=== PATIENT | male | born 1980 | race Caucasian/White ===

== ENCOUNTER 2018-03-20 12:10 | Emergency (ER) | payer MEDICAID ==
[~2018-03-20] VITALS: Ht 180.3 cm; Wt 86.4 kg
[2018-03-20 12:15] VITALS: Ht 180.3 cm; Wt 86.4 kg
[2018-03-20 13:13] LABS: APPEARANCE CLEAR (CLEAR); BILIRUBIN NEGATIVE (NEGATIVE); GLUCOSE NEGATIVE (NEGATIVE); KETONE NEGATIVE (NEGATIVE); NITRITE NEGATIVE (NEGATIVE); PROTEIN NEGATIVE (NEGATIVE); SPECIFIC GRAVITY 1.025 (1.005-1.020); UROBILINOGEN NORMAL (NORMAL)
[2018-03-20 13:15] LABS: BACTERIA FEW /hpf (NONE SEEN); EPITHELIAL CELLS RARE /hpf (0-5); MUCUS <1+ /lpf (NONE SEEN); RED CELLS - URINE 0-5 /hpf (0-5); WHITE CELLS - URINE RARE /hpf (0-5)
[2018-03-20 13:16] LABS: COLOR YELLOW (YELLOW)
[2018-03-20] MEDS ORDERED: NORCO 10-325 TA1 TAB PO (14:49)
[2018-03-20] MEDS ORDERED: ZOFRAN ODT4 MG/UDTAB PO (14:50)
[2018-03-20] MEDS ORDERED: FLOMAX0.4 MG PO (14:50)
[2018-03-20 16:23] VITALS: BP 135/74
== END 2018-03-20 15:08 | disposition home or self-care (01) ==
LOC: D.ER 12:10
PROVIDERS: Family Medicine
DX: N20.1 Calculus of ureter (principal); N23 Unspecified renal colic; F17.200 Nicotine dependence, unspecified, uncomplicated

== ENCOUNTER 2019-07-21 04:01 | Emergency (ER) | payer MEDICAID ==
[~2019-07-21] VITALS: Ht 180.3 cm; Wt 86.4 kg
[~2019-07-21 04:01] MED LIST: FLOMAX0.4 MG PO; NORCO 10-325 TA1 TAB PO; ZOFRAN ODT4 MG/UDTAB PO
[2019-07-21 04:06] VITALS: Ht 180.3 cm; Wt 86.4 kg
[2019-07-21 05:14] LABS: UDS - AMPHET POSITIVE QUAL (NEGATIVE); UDS - BARB NEGATIVE QUAL (NEGATIVE); UDS - BENZO NEGATIVE QUAL (NEGATIVE); UDS - COCAINE NEGATIVE QUAL (NEGATIVE); UDS - OPIATE NEGATIVE QUAL (NEGATIVE); UDS - PCP NEGATIVE QUAL (NEGATIVE); UDS - THC POSITIVE QUAL (NEGATIVE)
[2019-07-21 05:15] LABS: BILIRUBIN NEGATIVE (NEGATIVE); GLUCOSE 100 mg/dL (NEGATIVE); KETONE NEGATIVE (NEGATIVE); NITRITE NEGATIVE (NEGATIVE); SPECIFIC GRAVITY 1.015 (1.005-1.020); UROBILINOGEN NORMAL (NORMAL)
[2019-07-21 05:17] LABS: AMORPHOUS SEDIMENT <1+ /lpf (NONE SEEN); BACTERIA FEW /hpf (NEGATIVE); EPITHELIAL CELLS 0-5 /hpf (0-5); RED CELLS - URINE 0-5 /hpf (0-5); WHITE CELLS - URINE 0-5 /hpf (NEGATIVE)
[2019-07-21] MEDS ORDERED: FLOMAX0.4 MG PO (06:12)
[2019-07-21] MEDS ORDERED: HYDROCODON-ACE1 EAC7 PO (06:12)
[2019-07-21 06:24] LABS: BASOPHILS 0.5 % (0-2); EOSINOPHILS 1.7 % (0-7); HEMATOCRIT 42.5 % (42.0-54.0); HEMOGLOBIN 14.2 g/dL (13.5-17.5); IMMATURE GRANULOCYTES 0.4 % (0-5); LYMPHOCYTES 8.7 % (15-50); MCH 29.7 pg (26.0-34.0); MCHC 33.4 g/dL (31.0-37.0); MCV 88.9 fL (80.0-100.0); MEAN PLATELET VOLUME 9.4 fL (7.4-10.4); MONOCYTES 4.7 % (2-11); PLATELET COUNT 323 10x3/uL (130-400); RBC 4.78 10x6/uL (4.20-6.10); RDW 13.4 % (11.5-14.5)
[2019-07-21 06:27] LABS: ANION GAP 13.3 mmol/L (8-16); CALCIUM 8.4 mg/dL (8.5-10.1); CARBON DIOXIDE 24.4 mmol/L (21.0-32.0); CREATININE - SERUM 1.6 mg/dL (0.6-1.3); POTASSIUM - SERUM 3.7 mmol/L (3.5-5.1)
[2019-07-21 06:44] LABS: ALBUMIN 3.5 g/dL (3.4-5.0); BILIRUBIN - TOTAL 0.18 mg/dL (0.2-1.3); PROTEIN - SERUM 6.9 g/dL (6.4-8.2)
[2019-07-21 06:55] VITALS: BP 113/71
== END 2019-07-21 06:56 | disposition home or self-care (01) ==
LOC: D.ER 04:01
PROVIDERS: Family Medicine
DX: N20.1 Calculus of ureter (principal); N28.9 Disorder of kidney and ureter, unspecified; R10.9 Unspecified abdominal pain

== ENCOUNTER → 2019-12-03 | Emergency (ER) | payer MEDICAID ==
[2019-07-21 04:06] VITALS: BMI 26.5
[~2019-12-03] MED LIST changes: +HYDROCODON-ACE1 EAC7 PO
== END | disposition home or self-care (01) ==
LOC: D.ER 16:04
DX: R07.9 Chest pain, unspecified (principal)